=== PATIENT | male | born 1975 ===

== ENCOUNTER 2017-03-06 11:07 | Emergency (ER) | payer MEDICAID, OTHER ==
[2017-03-06 11:17] VITALS: RESP 18; TEMP 98; O2SAT 97
[2017-03-06] MEDS ORDERED: HYDROCODONE/APAP 5/325 TAB PO ONE (12:53)
--- NOTE | 2017-03-06 12:53 | UCPHY ---
H & P Time Seen by Provider: 03/06/17 12:19 Patient Type: Established HPI/ROS: CHIEF COMPLAINT: Cyst on the back HISTORY OF PRESENT ILLNESS: 41-year-old male noted an area of redness and swelling in the midline lower back back a week ago. He thought was a pimple. He popped it. Had some drainage but over the last several days has had increasing swelling and discomfort in the area. No fever. No abdominal pain. No numbness or tingling in his legs. No prior history of similar cysts. No history of IV drug abuse. No fever, chills, chest pain, shortness of breath, palpitations, vomiting, diarrhea, urinary complaints, headache, lightheadedness. REVIEW OF SYSTEMS: Aside from elements discussed in the HPI, a comprehensive 10-point review of systems was reviewed and is negative. PAST MEDICAL HISTORY: Denies diabetes. SOCIAL HISTORY: . VITAL SIGNS: see nurse's notes. GENERAL: Well-developed, well-nourished. Pleasant, alert, no acute distress. HEENT: Normal, no discharge or icterus, moist mucous membranes. Neck: supple, FROM. LUNGS: Clear to auscultation bilaterally, no wheezes, rhonchi or rales. CARDIAC: Regular rate and rhythm, no rubs, murmurs or gallops. ABDOMEN: Soft, nontender, nondistended, bowel sounds normal. BACK: Fluctuant, cystic area 3 cm x 2 cm is present in the midline back, just above the cleft. 2 areas of slight drainage. No erythema. EXTREMITIES: No edema, FROM. NEURO: Alert and oriented, grossly nonfocal. SKIN: Warm and dry, no rash. Neurovascular exam: Good capillary refill, normal motor exam, normal neurologic exam. Smoking Status: Never smoked Constitutional: Initial Vital Signs Temperature (C) 36.6 C 03/06/17 11:16 Heart Rate 78 03/06/17 11:16 Respiratory Rate 18 03/06/17 11:16 Blood Pressure 135/62 H 03/06/17 11:16 O2 Sat (%) 97 03/06/17 11:16 O2 Delivery Mode Room Air Allergies/Adverse Reactions: No Known Allergies Allergy (Unverified 07/03/16 15:46) Home Medications: Medication Instructions Recorded Doxycycline Hyclate [Vibramycin 100 mg PO BID #10 cap 03/06/17 100 MG (*)] MDM/Departure - MDM Procedures: Procedure: Abscess drainage. The patient's abscess was located on the lower back, midline. Risks, benefits, alternatives discussed with the patient and consent obtained. The abscess was incised with a #11 blade and moderate amount purulent drainage was expressed. The wound was packed. The patient tolerated the procedure well. The procedure was performed by myself. Medications Given: Discontinued Medications Hydrocodone Bitart/Acetaminophen ([place] 5/325) 2 tab PO EDNOW ONE Stop: 03/06/17 12:54 Last Admin: 03/06/17 13:05 Dose: 2 tab ED Course/Re-evaluation: 41-year-old male presenting with a midline cystic abscess. No prior history of similar abscesses. Abscess on indeed with moderate amount of drainage. Abscess was packed. was instructed regarding packing removal in 48 hours. Patient was placed on doxycycline. Wound cultures were sent. Patient tolerated procedure well. Please see discharge instructions. Differential Diagnosis: Differential diagnoses for the patient's symptom complex was considered including but not limited to abscess, MRSA, MSSA, pilonidal cyst, perirectal abscess, cutaneous abscess. - Depart Disposition: Home, Routine, Self-Care Clinical Impression: Abscess Condition: Good Instructions: Pilonidal Cyst (ED), Abscess (ED) Additional Instructions: Keep the area clean and dry. Keep the packing in place until 48 hours. At that time the packing can be removed. Once the packing is removed please wash the abscess carefully in the shower and gently irrigate. Take antibiotics as directed. If you are developing redness around the area, increased pain, fevers and chills , other concerns, you may return to urgent care for recheck. Prescriptions: Doxycycline Hyclate [Vibramycin 100 MG (*)] 100 mg PO BID #10 cap Referrals: NONE *PRIMARY CARE P,. [Primary Care Provider] - As per Instructions - PQRS PQRS Measurement: Not applicable
[2017-03-06 13:24] VITALS: BP 130/75; PULSE 80
== END 2017-03-06 13:15 | disposition home or self-care (01) ==
LOC: CED 11:07
PROC: 0H96XZZ Drainage of Back Skin, External Approach (ICD-10-PCS; principal; 2017-03-06)
DX: L72.3 Sebaceous cyst (principal)
CPT/HCPCS: G0463-PO